=== PATIENT | female | born 1970 | race Caucasian/White ===

== ENCOUNTER 2017-02-12 18:01 | Inpatient (IN) | payer MEDICAID, OTHER ==
[~2017-02-12] VITALS: Ht 157.5 cm; Wt 52.6 kg
[2017-02-12 19:41] LABS: RAPID INFLUENZA A Negative (Negative); RAPID INFLUENZA B Negative (Negative)
[2017-02-12 19:42] LABS: ALANINE AMINOTRANSFERASE 41 U/L (12-78); ALBUMIN 2.4 g/dL (3.4-5.0); ANION GAP 15 mmol/L (5-15); CALCIUM 8.4 mg/dL (8.5-10.1); CHLORIDE 95 mmol/L (98-107)
[2017-02-12 19:46] LABS: ALKALINE PHOSPHATASE 185 U/L (45-117); BILIRUBIN,TOTAL 0.9 mg/dL (0.2-1.0); TOTAL PROTEIN 8.1 g/dL (6.4-8.2)
[2017-02-12 19:47] LABS: TROPONIN I 0.166 ng/mL (0.000-0.045)
[2017-02-12 19:53] LABS: BASOPHILS # (AUTO) 0.01 x10^3/uL (0-0.1); BASOPHILS % (AUTO) 0 % (0-1); EOSINOPHILS % (AUTO) 0 % (1-7); LYMPHOCYTES # (AUTO) 1.16 x10^3/uL (1-3.4); LYMPHOCYTES % (AUTO) 22 % (22-44); MD SCAN; MEAN CORPUSCULAR HEMOGLOBIN 31.5 pg (27.0-34.8); MEAN CORPUSCULAR HGB CONC 33.6 g/dL (32.4-35.8); MEAN CORPUSCULAR VOLUME 93.9 fL (80-100); MONOCYTES # (AUTO) 0.22 x10^3/uL (0.2-0.8); MONOCYTES % (AUTO) 4 % (2-9); NEUTROPHILS # (AUTO) 3.93 x10^3/uL (1.8-6.8); NEUTROPHILS % (AUTO) 74 % (42-75); PLATELET COUNT 70 x10^3/uL (130-400); RED BLOOD COUNT 3.74 x10^6/uL (3.82-5.3); RED CELL DISTRIBUTION WIDTH 14.5 % (9.6-15.2)
[2017-02-12] MEDS ORDERED: SEVE800T8 PO (20:11)
[2017-02-12] MEDS ORDERED: CALC667C PO (20:11)
[2017-02-12] MEDS ORDERED: NITROGLYCERIN SINGLE TAB 0.4 MG SL PRN (20:30)
[2017-02-12] MEDS ORDERED: ASPIRIN 81 MG TABLET CHEW PO ONE (20:30)
[2017-02-12] MEDS ORDERED: ASPIRIN 81 MG TABLET CHEW ONE (20:40)
[2017-02-12] MEDS ORDERED: NITROGLYCERIN SINGLE TAB 0.4 MG SL ONE (20:40)
[2017-02-12] MEDS ORDERED: LABETALOL 5MG/ML, 20ML IVPush PRN (21:00)
[2017-02-12] MEDS ORDERED: DOCUSATE 100 MG CAPSULE PO PRN (21:00)
[2017-02-12] MEDS ORDERED: ONDANSETRON 2MG/ML, 2ML IVPush PRN (21:00)
[2017-02-12] MEDS ORDERED: SODIUM CHLORIDE FLUSH 10ML SYR IVF PRN (21:00)
[2017-02-12] MEDS ORDERED: BISACODYL 10 MG SUPP PR PRN (21:00)
[2017-02-12] MEDS ORDERED: POLYETHYLENE GLYCOL 17 GM PACKET PO PRN (21:00)
[2017-02-12] MEDS ORDERED: ACETAMINOPHEN 325 MG TABLET PO PRN (21:00)
[2017-02-12] MEDS: SODIUM CHLORIDE 0.9% 1,000 ML IV SCH (21:26)
[2017-02-12] MEDS ORDERED: HYDROmorphone 2 MG/ML, 1ML ONE (21:45)
[2017-02-12 22:14] VITALS: BP 137/64
[2017-02-12] MEDS ORDERED: GUAIFENESIN/DM 200-20MG, 10ML UDC PO PRN (23:00)
[2017-02-12] MEDS: CALCIUM ACETATE 667 MG CAPSULE PO SCH (23:06)
[2017-02-12] MEDS: HEPARIN 5,000 UNITS/ML, 1ML SQ SCH (23:06)
[2017-02-12] MEDS: SEVELAMER 800MG TABLET PO SCH (23:06)
[2017-02-13 01:21] LABS: CLOSTRIDIUM DIFFICILE ANTIGEN NEGATIVE; CLOSTRIDIUM DIFFICILE TOXIN NEGATIVE (Negative)
[2017-02-13 02:01] VITALS: BP 146/74
[2017-02-13 02:31] LABS: MEAN CORPUSCULAR HEMOGLOBIN 31.7 pg (27.0-34.8); MEAN CORPUSCULAR HGB CONC 33.7 g/dL (32.4-35.8); MEAN CORPUSCULAR VOLUME 94.1 fL (80-100); RED BLOOD COUNT 3.51 x10^6/uL (3.82-5.3); RED CELL DISTRIBUTION WIDTH 14.3 % (9.6-15.2)
[2017-02-13 02:38] LABS: ANION GAP 15 mmol/L (5-15); CALCIUM 8.4 mg/dL (8.5-10.1); CHLORIDE 97 mmol/L (98-107)
[2017-02-13 02:51] LABS: TROPONIN I 0.204 ng/mL (0.000-0.045)
[2017-02-13 03:02] LABS: BASOPHILS # (AUTO) 0.02 x10^3/uL (0-0.1); BASOPHILS % (AUTO) 0 % (0-1); EOSINOPHILS % (AUTO) 0 % (1-7); LYMPHOCYTES # (AUTO) 1.14 x10^3/uL (1-3.4); LYMPHOCYTES % (AUTO) 21 % (22-44); MD SCAN; MEAN PLATELET VOLUME 9.8 fL (7.4-10.4); MONOCYTES # (AUTO) 0.34 x10^3/uL (0.2-0.8); MONOCYTES % (AUTO) 6 % (2-9); NEUTROPHILS # (AUTO) 3.83 x10^3/uL (1.8-6.8); NEUTROPHILS % (AUTO) 72 % (42-75); PLATELET COUNT 59 x10^3/uL (130-400)
[2017-02-13] MEDS: HEPARIN 5,000 UNITS/ML, 1ML SQ SCH ×2 (06:21→18:09)
[2017-02-13 07:38] LABS: TROPONIN I 0.154 ng/mL (0.000-0.045)
[2017-02-13 08:00] VITALS: BP 127/78
[2017-02-13] MEDS: SEVELAMER 800MG TABLET PO SCH ×3 (08:40→18:09)
[2017-02-13] MEDS: CALCIUM ACETATE 667 MG CAPSULE PO SCH ×3 (08:40→18:09)
[2017-02-13] MEDS: SODIUM CHLORIDE 0.9% 1,000 ML IV SCH (11:52)
[2017-02-13 17:30] VITALS: BP 150/76
[2017-02-13 19:38] VITALS: BP 146/73
[2017-02-14] MEDS: HEPARIN 5,000 UNITS/ML, 1ML SQ SCH ×2 (02:02→11:31)
[2017-02-14 02:05] VITALS: BP 135/72
[2017-02-14 05:22] LABS: ALANINE AMINOTRANSFERASE 34 U/L (12-78); ALBUMIN 2.1 g/dL (3.4-5.0); ANION GAP 10 mmol/L (5-15); CALCIUM 8.3 mg/dL (8.5-10.1); CHLORIDE 103 mmol/L (98-107)
[2017-02-14 05:24] LABS: ALKALINE PHOSPHATASE 143 U/L (45-117); BILIRUBIN,TOTAL 0.9 mg/dL (0.2-1.0); TOTAL PROTEIN 7.3 g/dL (6.4-8.2)
[2017-02-14 05:30] LABS: MEAN CORPUSCULAR HEMOGLOBIN 31.3 pg (27.0-34.8); MEAN CORPUSCULAR HGB CONC 32.9 g/dL (32.4-35.8); MEAN CORPUSCULAR VOLUME 95.2 fL (80-100); MEAN PLATELET VOLUME 10.8 fL (7.4-10.4); PLATELET COUNT 61 x10^3/uL (130-400); RED CELL DISTRIBUTION WIDTH 14.5 % (9.6-15.2)
[2017-02-14 05:53] LABS: MD YES
[2017-02-14 05:56] LABS: BAND#(MANUAL) 0.08 x10^3/uL; BANDS%(MANUAL) 3 % (0-7); BASOS#(MANUAL) 0.03 x10^3/uL (0-0.1); BASOS% (MANUAL) 1 % (0-1); EOS#(MANUAL) 0.03 x10^3/uL (0.0-0.4); EOS% (MANUAL) 1 % (1-7); LYMPH#(MANUAL) 0.86 x10^3/uL (1-3.4); LYMPHS% (MANUAL) 33 % (22-44); MONOS#(MANUAL) 0.16 x10^3/uL (0.3-2.7); MONOS% (MANUAL) 6 % (2-9); SEG#(MANUAL) 1.46 x10^3/uL (1.8-6.8); SEGS% (MANUAL) 56 % (42-75)
[2017-02-14 05:57] LABS: POLYCHROMASIA 1+
[2017-02-14 05:58] LABS: <PLATELET ESTIMATE> DECREASED; <PLT MORPHOLOGY> NORMAL PLT MORPH
[2017-02-14] MEDS: SODIUM CHLORIDE 0.9% 1,000 ML IV SCH (06:30)
[2017-02-14 08:00] VITALS: BP 150/70
[2017-02-14] MEDS: CALCIUM ACETATE 667 MG CAPSULE PO SCH ×2 (08:09→11:31)
[2017-02-14] MEDS: SEVELAMER 800MG TABLET PO SCH ×2 (08:09→11:31)
[2017-02-14 14:03] VITALS: BP 137/77
== END 2017-02-14 15:44 | disposition home or self-care (01) | DRG 152 ==
LOC: ED 20:42 → EDIP 21:21 → 4WST 22:04 → DCLOUNGE 02-14 15:10
PROVIDERS: ADMIT Internal Medicine; ATTEND Internal Medicine
PROC: 5A1D70Z Performance of Urinary Filtration, Intermittent, Less than 6 Hours Per Day (ICD-10-PCS; principal; 2017-02-13)
DX: J06.9 Acute upper respiratory infection, unspecified (principal); N18.6 End stage renal disease; I12.0 Hypertensive chronic kidney disease with stage 5 chronic kidney disease or end stage renal disease; M32.9 Systemic lupus erythematosus, unspecified; E44.0 Moderate protein-calorie malnutrition; E87.1 Hypo-osmolality and hyponatremia; D63.1 Anemia in chronic kidney disease; D72.819 Decreased white blood cell count, unspecified; R74.8 Abnormal levels of other serum enzymes; R07.89 Other chest pain; Z68.21 Body mass index [BMI] 21.0-21.9, adult; Z99.2 Dependence on renal dialysis; Z87.891 Personal history of nicotine dependence
CPT/HCPCS: 36415; 71045; 80048; 80053; 80074; 82306; 83605; 83735; 83970; 84100; 84484; 85025; 87040; 87324; 87400; 93005; 93306; 99285; J1644; J7030